=== PATIENT | male | born 1965 | race Caucasian/White ===

== ENCOUNTER 2016-06-24 18:43 | Emergency (ER) | payer MEDICAID ==
[~2016-06-24] VITALS: Ht 165.1 cm; Wt 88.5 kg
[2016-06-24 19:01] VITALS: BP 138/81
[2016-06-24 20:19] LABS: Urine Bilirubin Negative (Negative); Urine Blood Negative /uL (Negative); Urine Color Yellow (Yellow); Urine Glucose Normal (Normal); Urine Ketone Negative (Negative); Urine Nitrite Negative (Negative); Urine RBC <1 /hpf (0 - 3); Urine Squamous Epithelial Cell FEW /hpf (<5); Urine Urobilinogen Normal (Negative)
[2016-06-24] MEDS ORDERED: KETOROLAC TROMETH 60MG/2ML VIAL IM ONE ×3 (21:15→21:45)
== END 2016-06-24 22:33 | disposition home or self-care (01) ==
LOC: ER 18:51
DX: M54.9 Dorsalgia, unspecified (principal); M79.1 Myalgia; R10.9 Unspecified abdominal pain; K21.9 Gastro-esophageal reflux disease without esophagitis; E78.5 Hyperlipidemia, unspecified; Z90.49 Acquired absence of other specified parts of digestive tract
CPT/HCPCS: 74176; 81001; 96372; 99285; J1885

== ENCOUNTER 2017-08-25 18:24 | Emergency (ER) | payer MEDICAID ==
[~2017-08-25] VITALS: Ht 165.1 cm; Wt 83.9 kg
[2017-08-25 18:34] VITALS: BP 135/71
== END 2017-08-25 20:23 | disposition home or self-care (01) ==
LOC: ER 18:24
DX: S60.222A Contusion of left hand, initial encounter (principal); K21.9 Gastro-esophageal reflux disease without esophagitis; E78.5 Hyperlipidemia, unspecified; Z90.49 Acquired absence of other specified parts of digestive tract; W01.0XXA Fall on same level from slipping, tripping and stumbling without subsequent striking against object, initial encounter; Y93.89 Activity, other specified; Y99.8 Other external cause status; Y92.89 Other specified places as the place of occurrence of the external cause
CPT/HCPCS: 73130

== ENCOUNTER 2017-12-09 16:02 | Emergency (ER) | payer MEDICAID, OTHER ==
[~2017-12-09] VITALS: Ht 165.1 cm; Wt 83.9 kg
[2017-12-09 16:31] VITALS: BP 145/90
[2017-12-09] MEDS ORDERED: methylPREDNISolone SOD SUCC 125 MG/2 ML VL IM ONE (18:45)
[2017-12-09] MEDS ORDERED: KETOROLAC TROMETH 60MG/2ML VIAL IM ONE (18:45)
[2017-12-09] MEDS ORDERED: LIDOCAINE 1% HCL (LOCAL ANESTH.) INJ 20ML MDV IJ ONE (18:45)
== END 2017-12-09 19:31 | disposition home or self-care (01) ==
LOC: ER 16:08
DX: S93.121A Dislocation of metatarsophalangeal joint of right great toe, initial encounter (principal); K21.9 Gastro-esophageal reflux disease without esophagitis; E78.5 Hyperlipidemia, unspecified; Z90.49 Acquired absence of other specified parts of digestive tract; W18.39XA Other fall on same level, initial encounter; Y93.89 Activity, other specified; Y99.8 Other external cause status; Y92.89 Other specified places as the place of occurrence of the external cause
CPT/HCPCS: 28630; 73620; 73630; 99284; J1885; J2001; J2930

== ENCOUNTER 2018-01-27 20:53 | Emergency (ER) | payer MEDICAID, OTHER ==
[~2018-01-27] VITALS: Ht 165.1 cm; Wt 86.2 kg
[2018-01-27 22:08] VITALS: BP 129/64
[2018-01-27] MEDS: TETANUS-DIPTH-ACEL PERTUSSIS 0.5ML SYRG IM ONE (23:49)
[2018-01-27] MEDS: LIDOCAINE 1% HCL (LOCAL ANESTH.) INJ 20ML MDV IJ ONE (23:49)
[2018-01-27] MEDS: cefTRIAXone SOD 1,000 MG VL IM ONE (23:51)
[2018-01-27] MEDS: KETOROLAC TROMETH 60MG/2ML VIAL IM ONE (23:51)
[2018-01-27] MEDS: NEOMYCIN-BACITRACIN-POLYM 15GM TOP OINT TOP SCH (23:52)
== END 2018-01-28 00:07 | disposition home or self-care (01) ==
LOC: ER 20:53
DX: S61.432A Puncture wound without foreign body of left hand, initial encounter (principal); K21.9 Gastro-esophageal reflux disease without esophagitis; E78.5 Hyperlipidemia, unspecified; Z90.49 Acquired absence of other specified parts of digestive tract; W29.8XXA Contact with other powered hand tools and household machinery, initial encounter; Y93.89 Activity, other specified; Y99.8 Other external cause status; Y92.89 Other specified places as the place of occurrence of the external cause
CPT/HCPCS: 73130; 90471; 90715; 96372; 99283; J0696; J1885; J2001

== ENCOUNTER 2021-01-13 19:40 | Emergency (ER) | payer MEDICAID ==
[~2021-01-13] VITALS: Ht 165.1 cm; Wt 86.2 kg
[2021-01-13 21:49] VITALS: BP 144/82
[2021-01-14] MEDS ORDERED: KETOROLAC TROMETH 60MG/2ML VIAL IM ONE
== END 2021-01-14 02:34 | disposition home or self-care (01) ==
LOC: ER 19:40
DX: S13.4XXA Sprain of ligaments of cervical spine, initial encounter (principal); S86.912A Strain of unspecified muscle(s) and tendon(s) at lower leg level, left leg, initial encounter; V43.52XA Car driver injured in collision with other type car in traffic accident, initial encounter; Y93.89 Activity, other specified; Y92.488 Other paved roadways as the place of occurrence of the external cause; Y99.8 Other external cause status
CPT/HCPCS: 70450; 71250; 72125; 73560; 74176; 96372; 99284; J1885

== ENCOUNTER 2021-12-28 19:07 | Emergency (ER) | payer MEDICAID, OTHER ==
[~2021-12-28] VITALS: Ht 165.1 cm; Wt 96.8 kg
[2021-12-28 20:04] VITALS: BP 134/80
[2021-12-28] MEDS ORDERED: ACETAMINOPHEN 500 MG TAB PO ONE (20:45)
[2021-12-28] MEDS ORDERED: ACET-1079 PO (22:45)
== END 2021-12-28 23:22 | disposition home or self-care (01) ==
LOC: ER 19:07
DX: S86.912A Strain of unspecified muscle(s) and tendon(s) at lower leg level, left leg, initial encounter (principal); M79.10 Myalgia, unspecified site; R07.89 Other chest pain; K21.9 Gastro-esophageal reflux disease without esophagitis; E78.5 Hyperlipidemia, unspecified; Z90.49 Acquired absence of other specified parts of digestive tract; Z79.899 Other long term (current) drug therapy; V49.9XXA Car occupant (driver) (passenger) injured in unspecified traffic accident, initial encounter; Y93.89 Activity, other specified; Y92.410 Unspecified street and highway as the place of occurrence of the external cause; Y99.8 Other external cause status
CPT/HCPCS: 71046; 72040; 72100; 73562

== ENCOUNTER 2022-02-14 06:36 | Emergency (ER) | payer MEDICAID, OTHER ==
[~2022-02-14] VITALS: Ht 165.1 cm; Wt 95.7 kg
[~2022-02-14 06:36] MED LIST: ACET-1079 PO
[2022-02-14 07:26] VITALS: BP 156/82
[2022-02-14] MEDS ORDERED: TRAM-297 PO ×2 (08:03→08:07)
[2022-02-14] MEDS ORDERED: PRED20TA2 PO (08:07)
== END 2022-02-14 08:14 | disposition home or self-care (01) ==
LOC: ER 06:36
DX: M24.812 Other specific joint derangements of left shoulder, not elsewhere classified (principal); K21.9 Gastro-esophageal reflux disease without esophagitis; E78.5 Hyperlipidemia, unspecified; Z90.49 Acquired absence of other specified parts of digestive tract
CPT/HCPCS: 73030

== ENCOUNTER 2024-03-05 10:50 | Emergency (ER) | payer MEDICAID, OTHER ==
[~2024-03-05] VITALS: Ht 165.1 cm; Wt 94.8 kg
[~2024-03-05 10:50] MED LIST changes: +PRED20TA2 PO; +TRAM-297 PO
[2024-03-05] MEDS ORDERED: HYDROcodone-ACET 5/325MG TAB PO ONE (11:15)
--- NOTE | 2024-03-05 11:23 | ED.PDOC ---
History of Present Illness HPI Comments 59M presents to the ER w/ no prior Hx associated to the c/c of chest wall pain. Pt reports that she was walking down the ramp of his trailer when he tripped and hit his right side of the chest wall, and it is currently tender w/ more pain when breathing in. PMHx of GERD, and High Lipids. SHx of Cholecystectomy. Denies chills, fever, N/V/D, SOB, CP or other associated symptom's, modifiers, or recent injuries or sick contact at this time. Chief Complaint: Rib Pain Time Seen by MD: 11:10 Primary Care Provider: [facility] Reviewed Notes: Nurses Notes, Medications, Allergies Allergies: Coded Allergies: NO KNOWN ALLERGIES (Unverified , 04/04/11) Home Meds Active Scripts Tramadol Hcl (Ultram) 50 Mg Tab, 1 TAB PO BID, #24 TAB Prov:MARY CAMERON 02/14/22 Prednisone (Prednisone) 20 Mg Tab, 40 MG PO DAILY, #20 MG Prov:MARY CAMERON 02/14/22 Acetaminophen (Tylenol) 325 Mg Tb, 500 MG PO QIDP for 10 Days, #62 TAB Prov:CARLOS ALBERTO WATTS DO 12/28/21 Information Source: Patient Mode of Arrival: Ambulatory Severity: Moderate Timing: Minutes Duration: Since onset, Minutes Prehospital treatment: None Past Medical History PAST MEDICAL HISTORY: GERD, High Lipids Surgical History: Cholecystectomy Family History Family History: Unknown Social History Smoker: Non-Smoker Alcohol: Denies ETOH Use Drugs: Denies Drug Use Lives In: Home Constitutional: reports: others (Fall trauma); denies: chills, diaphoresis, fatigue, fever, malaise, sweats, weakness EENTM: denies: blurred vision, double vision, ear bleeding, ear discharge, ear drainage, ear pain, ear ringing, eye pain, eye redness, hearing loss, mouth pain, mouth swelling, nasal discharge, nose bleeding, nose congestion, nose pain, photophobia, tearing, throat pain, throat swelling, voice changes, others Respiratory: denies: cough, hemoptysis, orthopnea, SOB at rest, shortness of breath, SOB with excertion, stridor, wheezing, others Cardiovascular: denies: chest pain, dizzy spells, diaphoresis, Dyspnea on exertion, edema, irregular heart beat, left arm pain, lightheadedness, palpitations, PND, syncope, others Gastrointestinal: denies: abdomen distended, abdominal pain, blood streaked bowels, constipated, diarrhea, dysphagia, difficulty swallowing, hematemesis, melena, nausea, poor appetite, poor fluid intake, rectal bleeding, rectal pain, vomiting, others Genitourinary: denies: burning, dysuria, flank pain, frequency, hematuria, incontinence, penile discharge, penile sore, pain, testicle pain, testicle swelling, urgency, others Neurological: denies: dizziness, fainting, headache, left sided numbness, left sided weakness, numbness, paresthesia, pre-existing deficit, right sided numbness, right sided weakness, seizure, speech problems, tingling, tremors, weakness, others Musculoskeletal: denies: back pain, gout, joint pain, joint swelling, muscle pain, muscle stiffness, neck pain, others Integumetry: denies: bruises, change in color, change in hair/nails, dryness, laceration, lesions, lumps, rash, wounds, others Allergic/Immunocompromised: denies: Difficulty Healing, Frequent Infections, Hives, Itching, others Hematologic/Lymphatic: denies: anemia, blood clots, easy bleeding, easy bruising, swollen glands, others Endocrine: denies: excessive hunger, excessive sweating, excessive thirst, excessive urination, flushing, intolerance to cold, intolerance to heat, un explained weight gain, unexplained weight loss, others Psychiatric: denies: anxiety, bipolar disorder, depression, hopeless, panic disorder, schizophrenia, sleepless, suicidal, others All Other Systems: Reviewed and Negative Physical Exam Exam Comments chest wall is tender, no bruising, no crepitus, lungs are clear General Appearance: No Apparent Distress, Normal HEENT: Normal ENT Inspection, Pharynx Normal, TMs Normal Neck: Full Range of Motion, Non-Tender, Normal, Normal Inspection Respiratory: Chest Non-Tender, Lungs Clear, No Accessory Muscle Use, No Respiratory Distress, Normal Breath Sounds Cardiovascular: No Edema, No JVD, No Murmur, No Gallop, Normal Peripheral Pulses, Regular Rate/Rhythm Breast Exam: Deferred Gastrointestinal: No Organomegaly, Non Tender, No Pulsatile Mass, Normal Bowel Sounds, Soft Genitalia: Deferred Pelvic: Deferred Rectal: Deferred Extremities: No calf tenderness, Normal capillary refill, Normal inspection, Normal range of motion, Non-tender, No pedal edema Musculoskeletal : Apperance: Normal Neurologic: Alert, combiner II-XII nml as Tested, No Motor Deficits, Normal Affect, Normal Mood, No Sensory Deficits Cerebellar Function: Normal Reflexes: Normal Skin: Dry, Normal Color, Warm Lymphatic: No Adenopathy Was a procedure done? Was a procedure done?: No Differential Dx Considerations may include: rib fracture, chest wall contusion, ptx, pulm contusion X-Ray, Labs, Meds, VS Vital Signs Date Time Temp Pulse Resp B/P (MAP) Pulse Ox O2 Delivery O2 Flow Rate FiO2 03/05/24 11:41 99 22 97 Room Air 03/05/24 11:41 98.9 99 22 151/95 (113) 97 98.9 03/05/24 11:00 98.1 86 18 156/97 (116) 95 Current Medications Medications (Trade) Dose Ordered Sig/Juan Route Start Time Stop Time Status Last Admin Acetaminophen/ Hydrocodone Bitart ([place] 7.5/325MG Tab) 1 tab ONCE ONCE PO 03/05/24 12:00 03/05/24 12:01 DC 03/05/24 11:55 Ondansetron HCl (Zofran Po) 4 mg ONCE ONCE PO 03/05/24 12:15 03/05/24 12:16 DC 03/05/24 12:08 Time of 1ST Reevaluation: 11:40 Reevaluation 1ST: Unchanged Patient Education/Counseling: Diagnosis, Treatment, Prognosis, Need For Follow Up Family Education/Counseling: Diagnosis, Treatment, Prognosis, Need For Follow Up, No Family Present Additional Information - I reviewed the following notes from patient's past medical encounters: 02/14/22 - The following tests were ordered, and results were reviewed by me: PHA, X-Ray - I reviewed and agreed with the following test results read by other provider: X-ray - I discussed treatments and results with medical personnel and: family pt does not have any fractures on cxr, nor ptx, or evidence of pulmonary contusion. i will start him on flexeril, motrin, and norco Departure 1 Departure Time of Disposition: 13:56 Impression: Primary Impression: Chest wall contusion Qualified Codes: S20.211A - Contusion of right front wall of thorax, initial encounter Disposition: HOME / SELF CARE / HOMELESS Condition: Good e-Prescriptions Hydrocodone-Acetaminophen (Hydrocodone Bitartrate/AC 5-325 mg) 1 Tab Tab 1 TAB PO Q8HP PRN for 3 Days, #9 TAB Prov: ROSIO COBB MD 03/05/24 Ibuprofen Micronized (MOTRIN TABLET) 600 Mg Tb 600 MG PO TID PRN, #40 TAB *Black box warning-NSAIDS can increase risk of [place] & hypertension, GI irritation, ulceration, bleed, perferation. Do not use post cardiac surgery. Use short duration/lowest effective dose. Prov: ROSIO COBB MD 03/05/24 Cyclobenzaprine Hcl (Cyclobenzaprine Hcl) 10 Mg Tab 10 MG PO Q8HP PRN for 3 Days, #9 TAB Prov: ROSIO COBB MD 03/05/24 Discharged With: Self, Spouse Critical Care Note Critical Care Time?: No Stability Stability form required: No I personally scribed for ROSIO COBB MD ([email or web address]) on 03/05/24 at 11:23. Electronically submitted by Judd Bucio ([email or web address]). ROSIO COBB MD Mar 05, 2024 11:23
--- NOTE | 2024-03-05 11:40 | DVH ---
EXAMINATION: XY R RIB XRAY INDICATION: INJURY COMPARISON: None TECHNIQUE: Frontal view of the chest and oblique views of the right wrist ribs FINDINGS: No focal consolidation, pleural effusion or significant pneumothorax. Normal cardiomediastinal silhou ette. No displaced right rib fracture. IMPRESSION: 1. No acute cardiopulmonary disease. 2. No displaced right rib fracture. HS:Y
[2024-03-05 11:41] VITALS: BP 151/95; PULSE 99; RESP 22; TEMP 98.9; O2SAT 97
[2024-03-05] MEDS: HYDROcodone-ACET 7.5/325MG TAB PO ONE (11:55)
[2024-03-05] MEDS: ONDANSETRON ODT 4 MG TAB PO ONE (12:08)
[2024-03-05] MEDS ORDERED: IBU600T PO (13:57)
[2024-03-05] MEDS ORDERED: HYDR-4902 PO (13:57)
[2024-03-05] MEDS ORDERED: CYCL-839 PO (13:57)
== END 2024-03-05 14:31 | disposition home or self-care (01) ==
LOC: ER 10:50
DX: S20.211A Contusion of right front wall of thorax, initial encounter (principal); K21.9 Gastro-esophageal reflux disease without esophagitis; E78.5 Hyperlipidemia, unspecified; Z79.899 Other long term (current) drug therapy; Z90.49 Acquired absence of other specified parts of digestive tract; X58.XXXA Exposure to other specified factors, initial encounter; Y93.89 Activity, other specified; Y92.89 Other specified places as the place of occurrence of the external cause; Y99.8 Other external cause status
CPT/HCPCS: 71101; 99283; Q0162

== ENCOUNTER 2024-11-05 18:51 | Emergency (ER) | payer MEDICAID, OTHER ==
[~2024-11-05] VITALS: Ht 165.1 cm; Wt 96.6 kg
[~2024-11-05 18:51] MED LIST changes: +CYCL-839 PO; +HYDR-4902 PO; +IBU600T PO
[2024-11-05 18:54] VITALS: BP 137/58; PULSE 94; RESP 14; TEMP 98.2; O2SAT 95
--- NOTE | 2024-11-05 19:10 | ED.PDOC ---
Foreign Body HPI Comments This is a 59 year old male presenting to the ED with chief complaint of foreign object. Patient reports that he had gotten a piece of wood stuck in his right index finger at 1400 today, causing pain, swelling and redness to the site. Patient denies any numbness, bleeding, discharge, or further injury. Chief Complaint: Foreign Body Time Seen by MD: 19:09 Primary Care Provider: [facility] History of Present Illness: Nurses Notes, Medications, Allergies Allergies: Coded Allergies: NO KNOWN ALLERGIES (Unverified , 04/04/11) Home Meds Active Scripts Ibuprofen (Ibuprofen) 800 Mg Tab, 800 MG PO Q8HP PRN for 7 Days, #21 TAB Prov:KELLY POTTS 11/05/24 Amoxicillin & Pot Clavulanate (AUGMENTIN TABLET) 875 Mg Tb, 875 MG PO BID for 7 Days, #14 TAB Prov:KELLY POTTS 11/05/24 Hydrocodone-Acetaminophen (Hydrocodone Bitartrate/AC 5-325 mg) 1 Tab Tab, 1 TAB PO Q8HP PRN for 3 Days, #9 TAB Prov:ROSIO COBB MD 03/05/24 Ibuprofen Micronized (MOTRIN TABLET) 600 Mg Tb, 600 MG PO TID PRN, #40 TAB *Black box warning-NSAIDS can increase risk of [place] & hypertension, GI irritation, ulceration, bleed, perferation. Do not use post cardiac surgery. Use short duration/lowest effective dose. Prov:ROSIO COBB MD 03/05/24 Cyclobenzaprine Hcl (Cyclobenzaprine Hcl) 10 Mg Tab, 10 MG PO Q8HP PRN for 3 Days, #9 TAB Prov:ROSIO COBB MD 03/05/24 Tramadol Hcl (Ultram) 50 Mg Tab, 1 TAB PO BID, #24 TAB Prov:MARY CAMERON 02/14/22 Prednisone (Prednisone) 20 Mg Tab, 40 MG PO DAILY, #20 MG Prov:MARY CAMERON 02/14/22 Acetaminophen (Tylenol) 325 Mg Tb, 500 MG PO QIDP for 10 Days, #62 TAB Prov:CARLOS ALBERTO WATTS DO 12/28/21 Information Source: Patient Mode of Arrival: Ambulatory Timing: Hours Duration: Since onset Severity: Moderate Prehospital treatment: None Location: Skin (Rt index finger) Context: Injury Foreign Body: Wood Removal: Was attempted, Was not successful Associated signs and symptoms: Pain Past Medical History PAST MEDICAL HISTORY: GERD, High Lipids Surgical History: Cholecystectomy Family History Family History: Unknown Social History Smoker: Non-Smoker Alcohol: Denies ETOH Use Drugs: Denies Drug Use Lives In: Home Constitutional: denies: chills, diaphoresis, fatigue, fever, malaise, sweats, weakness, others EENTM: denies: blurred vision, double vision, ear bleeding, ear discharge, ear drainage, ear pain, ear ringing, eye pain, eye redness, hearing loss, mouth pain, mouth swelling, nasal discharge, nose bleeding, nose congestion, nose pain, photophobia, tearing, throat pain, throat swelling, voice changes, others Respiratory: denies: cough, hemoptysis, orthopnea, SOB at rest, shortness of breath, SOB with excertion, stridor, wheezing, others Cardiovascular: denies: chest pain, dizzy spells, diaphoresis, Dyspnea on exertion, edema, irregular heart beat, left arm pain, lightheadedness, p alpitations, PND, syncope, others Gastrointestinal: denies: abdomen distended, abdominal pain, blood streaked bowels, constipated, diarrhea, dysphagia, difficulty swallowing, hematemesis, melena, nausea, poor appetite, poor fluid intake, rectal bleeding, rectal pain, vomiting, others Genitourinary: denies: burning, dysuria, flank pain, frequency, hematuria, incontinence, penile discharge, penile sore, pain, testicle pain, testicle swelling, urgency, others Neurological: denies: dizziness, fainting, headache, left sided numbness, left sided weakness, numbness, paresthesia, pre-existing deficit, right sided numbness, right sided weakness, seizure, speech problems, tingling, tremors, weakness, others Musculoskeletal: denies: back pain, gout, joint pain, joint swelling, muscle pain, muscle stiffness, neck pain, others Integumetry: reports: others (Wood in right index finger); denies: bruises, change in color, change in hair/nails, dryness, laceration, lesions, lumps, rash, wounds Allergic/Immunocompromised: denies: Difficulty Healing, Frequent Infections, Hives, Itching, others Hematologic/Lymphatic: denies: anemia, blood clots, easy bleeding, easy bruising, swollen glands, others Endocrine: denies: excessive hunger, excessive sweating, excessive thirst, excessive urination, flushing, intolerance to cold, intolerance to heat, unexplained weight gain, unexplained weight loss, others Psychiatric: denies: anxiety, bipolar disorder, depression, hopeless, panic disorder, schizophrenia, sleepless, suicidal, others All Other Systems: Reviewed and Negative Physical Exam General Appearance: No Apparent Distress, Normal HEENT: Pharynx Normal Neck: Full Range of Motion, Non-Tender Respiratory: Lungs Clear, No Respiratory Distress, Normal Breath Sounds Cardiovascular: No Murmur, Normal Peripheral Pulses, Regular Rate/Rhythm Breast Exam: Deferred Gastrointestinal: Non Tender, Soft Genitalia: Deferred Pelvic: Deferred Rectal: Deferred Extremities: Normal capillary refill, Normal range of motion Musculoskeletal : Apperance: Normal Neurologic: Alert, No Motor Deficits, Normal Affect, Normal Mood, No Sensory Deficits Cerebellar Function: Normal Reflexes: NOT DONE Skin: Dry, Normal Color, Warm, Wounds (Right index finger anterior distal aspect noted entry and exit wound possible foreign body controlled strength sen sonia motion intact cap refill less than 3 seconds.) Lymphatic: No Adenopathy Was a procedure done? Was a procedure done?: Yes Sedation Sedation?: No Informed consent obtained: Yes Foreign Body Removal Foreign body in: Skin Anesthetic: Lidocaine, With Epi (digital block right index finger) Prep: Saline, Betadine, Irrigation Procedure: Incised, Unable to Remove Informed consent obtained: Yes Risks/benefits/alt described: Yes UTO Consent Patient tolerated well blood loss. Wound was too deep penetrated into skin removed several pieces bandage start patient is started on Augmentin given Rocephin shot advised to follow up with his PCP in two days for wound re- evaluation. Return precautions given patient indicates understanding and agrees with discharge plan of care. FB Differential Dx Differential Diagnosis: Foreign Body X-Ray, Labs, Meds, VS Vital Signs Date Time Temp Pulse Resp B/P (MAP) Pulse Ox O2 Delivery O2 Flow Rate FiO2 11/05/24 18:54 98.2 94 14 137/58 95 98.2 X-Ray, Labs, Meds, VS Comment see procedure note Time of 1ST Reevaluation: 20:09 Reevaluation 1ST: Unchanged Time of 2ND Reevaluation: 21:16 Reevaluation 2ND: Improved Patient Education/Counseling: Diagnosis, Treatment Family Education/Counseling: No Family Present Departure 1 Departure Time of Disposition: 21:16 Impression: Primary Impression: Splinter of finger Disposition: 01 HOME / SELF CARE / HOMELESS Condition: Stable e-Prescriptions Ibuprofen (Ibuprofen) 800 Mg Tab 800 MG PO Q8HP PRN for 7 Days, #21 TAB Prov: KELLY POTTS 11/05/24 Amoxicillin & Pot Clavulanate (AUGMENTIN TABLET) 875 Mg Tb 875 MG PO BID for 7 Days, #14 TAB Prov: KELLY POTTS 11/05/24 Discharged With: Spouse Critical Care Note Critical Care Time?: No Stability Stability form required: No Heart Score Heart Score: Heart Score Response (Comments) Value History N/A 0 EKG N/A 0 Age N/A 0 Risk Factors N/A 0 Troponin N/A 0 Total 0 I personally scribed for ER ([email or web address]) on 11/05/24 at 19:10. Electronically submitted by Dayron Preston ([email or web address]). ER Nov 05, 2024 19:10 KELLY POTTS [employer]ING [employer] Nov 05, 2024 21:17
[2024-11-05] MEDS ORDERED: LIDOCAINE 1% HCL (LOCAL ANESTH.) INJ 20ML MDV ID ONE (21:00)
[2024-11-05] MEDS ORDERED: AUG875T PO (21:17)
[2024-11-05] MEDS ORDERED: IBUP-1456 PO (21:18)
[2024-11-05] MEDS ORDERED: TETANUS-DIPTH-ACEL PERTUSSIS 0.5ML SYR Tdap IM ONE (21:30)
[2024-11-05] MEDS ORDERED: cefTRIAXone SOD 1,000 MG VL IM ONE (21:30)
== END 2024-11-05 23:09 | disposition home or self-care (01) ==
LOC: ER 18:53
DX: S60.450A Superficial foreign body of right index finger, initial encounter (principal); Z90.49 Acquired absence of other specified parts of digestive tract; W45.8XXA Other foreign body or object entering through skin, initial encounter; Y93.89 Activity, other specified; Y92.89 Other specified places as the place of occurrence of the external cause; Y99.8 Other external cause status
CPT/HCPCS: 10120